=== PATIENT | female | born 1955 | race Caucasian/White ===

== ENCOUNTER 2021-01-04 06:44 | Day surgery (SDC) | payer OTHER ==
[~2021-01-04] VITALS: Ht 165.1 cm; Wt 63.5 kg
[~2021-01-04 06:44] MED LIST: ADVIL200 M3 PO; ALEVE220 MG PO; ASPIR-TRIN325 MG PO; CLARITIN10 M3 PO; FISH OIL 1,001000 M2 PO; GINKGO BILOBA500 MG PO; GLUCOSAMINE CH1 EAC2 PO; LISINOPRIL20 MG PO; MULTI VITAMIN1 EACH PO; MULTIVITAMINS1 EAC7 PO; PREMPRO 0.625-1 EACH PO; PRILOSEC OTC20 MG PO; PROAIR HFA8.5 GM INH; SINGULAIR 10 MG10 M1 PO; SYMBICORT160 MCG/4. INH; VENTOLIN HFA 1818 GM INH; VITAMIN B COMP1 EACH PO; ZYRTEC10 MG PO
[2021-01-04 09:03] VITALS: BP 130/70
[2021-01-04 11:37] VITALS: BP 130/70
--- NOTE | 2021-01-04 12:30 | O ---
[facility] [place] [address] [address] OPERATIVE REPORT Name: SHARIF BANKS Room #: 150-4 [facility]..#: [id number] Admission: 01/04/21 Attend Phys: Mike Paz MD Discharge: Date of : 57 Report #: [id number] THIS REPORT FOR: cc: Ralph Ordoñez Kent DO McCabe, Michael P. MD ~ DOC #: [id number] Mike Paz MD DATE OF SERVICE: 01/04/2021 SERVICE: Orthopedics. FACILITY: [facility]. SURGEON: Mike Paz MD PROFESSIONAL SERVICES SPECIALIST: Jessenia Salas NP INDICATIONS FOR PROFESSIONAL SERVICES SPECIALIST: Exposure, assistance with repair, closure and splinting. PREOPERATIVE DIAGNOSIS: Right distal biceps tendon rupture. POSTOPERATIVE DIAGNOSIS: Right distal biceps tendon rupture. PROCEDURE: Right distal biceps tendon repair. COMPLICATIONS: None. DRAINS: None. SPECIMENS: None. ANESTHESIA: General. FINDINGS: Arthrex cortical button fixation. POSTOPERATIVE PLAN: The patient will be in a splint at 90 degrees until first postoperative visit. She will transition to a hinged elbow brace locked at 90 degrees until the 3-week christina. She will then advance 10-15 degrees per week in her extension until 6 weeks postoperatively. At that point, brace is discontinued and full range of motion allowed. HISTORY: The patient is a 65-year-old left hand dominant female, who sustained an acute injury to her right elbow a couple weeks ago. She was initially treated conservatively and then presented for followup and had persistent pain, [facility] [address] [place] [address] OPERATIVE REPORT Name: SHARIF BANKS Room #: 150-4 [facility].#: [id number] Admission: 01/04/21 Attend Phys: Mike Paz MD Discharge: Date of : 57 Report #: [id number] weakness, and deformity in her biceps secondary to ruptured biceps tendon, which was confirmed on MRI. Based on her active lifestyle and the fact that she lives alone and takes care of her home and the yard and is quite physically active, we together decided that surgical treatment was optimal choice, especially considering how retracted the tendon was and the risk of associated cramping as a result. Risks, benefits, alternatives and indications for surgery discussed with her in detail. Risks include but not limited to pain, bleeding, infection, injuring nerves or blood vessels, persistent pain, failure of the repair, need for further surgery as well as complications related to anesthesia. Despite the risks, she wished to proceed. DESCRIPTION OF PROCEDURE: After right upper extremity was correctly identified in the preoperative holding area as the operative extremity, the patient was taken to the operating room where general anesthesia was induced without complications. She was padded appropriately. Prophylactic antibiotics were administered in appropriate time. Right arm was prepped and draped in standard sterile fashion. Timeout procedure performed. Sterile tourniquet was applied. Esmarch were used. Tourniquet inflated to 250 mmHg. C-arm was used to localize the radial tuberosity. An ulnar based transverse incision was then marked and made and then a superficial dissection was performed, allowing access to traverse proximally in a subcutaneous position while palpating the biceps tendon in the arm through the skin and then the tendon was visualized and then was grabbed with an Allis clamp and delivered into the wound with the elbow flexed. The tendon was cleaned of its stump and then a whipstitch was placed with the Arthrex system. Attention was then turned towards exposure of the radial tuberosity. There was a leashes of vessels, which were ligated with vessel clips and then the elbow was held in extended supinated position to allow access to the radial tuberosity and the bone was exposed. The retractors were maintaining safe position including subperiosteal without excessive retraction in order to protect nerves. Guidepin was drilled bicortically and then the unicortical drill hole was made to a 6 mm diameter based on the sizing for tendon. The tendon sutures were then weaved through the button and the button was placed in a bicortical fashion with x-ray to confirm the appropriate position and then the suture tails were pulled, advancing the tendon into the socket in the radial tuberosity. The elbow was flexed to 90 degrees in order to get the tendon reduced into the socket and then the suture was back passed through the tendon and tied for reinforcement. The wound was irrigated. Final x-rays had been taken to confirm appropriate positioning. The skin was closed with 2-0 Vicryl followed by running subcuticular 3-0 Monocryl and Dermabond. A well-padded posterior splint was applied. Postoperative plan is as stated above. 0-90 degrees for 3 weeks, then [address] [address] OPERATIVE REPORT Name: SHARIF BANKS Room #: 150-4 [facility] M..#: [id number] Admission: 01/04/21 Attend Phys: Mike Paz MD Discharge: Date of : 57 Report #: [id number] per week until week 6 and then unrestricted range of motion. The patient was awakened from anesthesia and taken to recovery room in stable condition. No complications. All counts were correct. Mike Paz MD MPM/PUN <ELECTRONICALLY SIGNED> By: Mike Paz MD 01/04/21 1230 1002 1110 Mike Paz MD /nt
--- NOTE | 2021-01-04 14:43 | EKG ---
[address] [address] ELECTROCARDIOGRAM REPORT Name: SHARIF BANKS Room #: 150-4 [facility]#: [id number] Admission: 01/04/21 Attend Phys: Mike Paz MD Discharge: Date of : 57 Report #: [id number] 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
== END 2021-01-04 14:05 | disposition home or self-care (01) ==
LOC: OR 06:44 → TBA 06:45 → OR 10:42
PROVIDERS: ATTEND Orthopaedic Surgery Sports Medicine
DX: S46.211A Strain of muscle, fascia and tendon of other parts of biceps, right arm, initial encounter (principal); I10 Essential (primary) hypertension; J45.909 Unspecified asthma, uncomplicated; K21.9 Gastro-esophageal reflux disease without esophagitis; Z98.890 Other specified postprocedural states; Z79.899 Other long term (current) drug therapy; Z86.19 Personal history of other infectious and parasitic diseases; Z98.51 Tubal ligation status; Z88.2 Allergy status to sulfonamides; X58.XXXA Exposure to other specified factors, initial encounter; Y93.89 Activity, other specified; Y92.89 Other specified places as the place of occurrence of the external cause; Y99.8 Other external cause status
CPT/HCPCS: 50010; 50101; 50386; 54118; 56528; 56668; 57091; 57178; 58477; 62110; 62900; 64039; 65002; 70005